=== PATIENT | female | born 1945 ===

== ENCOUNTER 2017-02-09 07:13 | Day surgery (SDC) | payer MEDICARE ==
[2017-02-09 08:31] VITALS: TEMP 97.1; O2SAT 100
[2017-02-09] MEDS ORDERED: Propofol 10 mg/ml Inj (20 ML) ONE (09:16)
[2017-02-09] MEDS ORDERED: Midazolam 2 MG/2 ML VIAL ONE (09:16)
--- NOTE | 2017-02-09 09:17 | CP.SDSHP ---
Same Day Surgery H & P - History Proposed Procedure: endoscopy Pre-Op Diagnosis: abdom pain - Previous Medical/Surgical History Cardiac: Hypertension - Allergies Allergies: Allergies ENVIRONMENTAL Allergy (Uncoded 02/09/17 07:48) CONGESTION - Physical Exam Vital Signs: Vital Signs 02/09/17 07:50 Temperature 97.1 F L Pulse Rate 74 Respiratory 19 Rate Blood Pressure 147/90 O2 Sat by Pulse 100 Oximetry Mental Status: Alert & Oriented x3 Neuro: WNL Heart: WNL Lungs: WNL GI: WNL - {Optional Preform as Required} Abdomen: WNL - Impression Impression: abdom pain Pt. Evaluated Today:Candidate for Anesthesia & Procedure: Yes - Date & Time Date: 02/09/17 Time: :17 Short Stay Discharge - Short Stay Discharge Admitting Diagnosis/Reason for Visit: GENERALIZED ABDOMINAL PAIN Disposition: HOME/ ROUTINE
[2017-02-09] MEDS ORDERED: Lactated Ringer's 500 ML IV ONE (09:29)
[2017-02-09 10:44] VITALS: BP 134/77; PULSE 68; RESP 20
== END 2017-02-09 10:52 | disposition home or self-care (01) ==
LOC: C.ENDO 07:13
PROVIDERS: ATTEND Internal Medicine Gastroenterology
DX: K21.0 Gastro-esophageal reflux disease with esophagitis (principal); I10 Essential (primary) hypertension; K29.70 Gastritis, unspecified, without bleeding; K44.9 Diaphragmatic hernia without obstruction or gangrene; K29.80 Duodenitis without bleeding
CPT/HCPCS: 43239; 88305; 88312; 88342; J2250; J2704; J7120

== ENCOUNTER 2018-08-25 10:45 | Outpatient (CLI) | payer MEDICARE | END 2018-08-25 10:46 | disposition home or self-care (01) | LOC: C.CTH 10:45 | DX: I10 Essential (primary) hypertension (principal); I72.8 Aneurysm of other specified arteries ==

== ENCOUNTER 2018-10-19 07:41 | Outpatient (CLI) | payer MEDICARE | END 2018-10-19 07:42 | disposition home or self-care (01) | LOC: C.CARD 07:41 | DX: I25.10 Atherosclerotic heart disease of native coronary artery without angina pectoris (principal) ==